=== PATIENT | female | born 1965 | race American Indian/Alaskan Native ===

== ENCOUNTER → 2024-08-24 | Outpatient (CLI) | payer OTHER, SELFPAY ==
--- NOTE | 2024-08-24 | XR_ITS ---
Examination: PA lateral chest 2 views TECHNIQUE: Upright PA lateral chest 2 views Exam date and time: August 24, 2024 1304 hours Comparison November 25, 2023 INDICATIONS: Coughing and epigastric pain this week, thyroidectomy in May FINDINGS: Normal heart size No pneumonia or pulmonary edema Again noted millimeters pulmonary nodule right upper lobe The osseous structures are intact IMPRESSION: 8mm pulmonary nodule right upper lobe, please see the CT chest report April 08, 2024
== END | disposition home or self-care (01) ==
PROVIDERS: PCP Nurse Practitioner Family; Referring Provider Nurse Practitioner Family; Visit Provider Nurse Practitioner Family
DX: R91.1 Solitary pulmonary nodule (principal); C73 Malignant neoplasm of thyroid gland
CPT/HCPCS: 71046

== ENCOUNTER 2024-10-04 08:13 | Outpatient (RCR) | payer OTHER, SELFPAY | END 2024-10-07 23:59 | disposition home or self-care (01) | LOC: SCTC 08:13 | PROVIDERS: PCP Nurse Practitioner Family; Referring Provider Nurse Practitioner Family; Visit Provider Radiology Therapeutic Radiology | DX: C73 Malignant neoplasm of thyroid gland (principal); E89.0 Postprocedural hypothyroidism; Z79.890 Hormone replacement therapy | CPT/HCPCS: 99213; G0463 ==

== ENCOUNTER 2024-12-01 10:08 | Outpatient (RCR) | payer OTHER, SELFPAY ==
--- NOTE | 2024-12-01 11:18 | CTCFLWUP_ITS ---
[facility] [address] [place], [place] [address] FOLLOW-UP NOTE Date: 12/01/2024 MR#: [id number] Name: ROBEL SULLIVAN : 1965 Dx: C73 Malignant neoplasm of thyroid gland Identification. Patient is here for follow-up. 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 Follicular adenomas within the right and left lobes nodule hyperplasia and parathyroid tissue present. Angioinvasion and lymphatic invasion not identified. Considering her age, of greater than 45, T stage between 1 to 4 cm this would be stage II clinically. Patient is being followed in [place] with director audience marketing and nuclear medicine expert was scheduled for both scan and therapeutic area iodine ablation. I will see her in 2 months with the results. Checking thyroid function tests along with markers and ultrasound will be following.. Electronically signed by: Prabhakar Hartman M.D. 12/01/2024 11:16 AM
== END 2024-12-05 23:59 | disposition home or self-care (01) ==
LOC: SCTC 10:08
PROVIDERS: PCP Nurse Practitioner Family; Referring Provider Nurse Practitioner Family; Visit Provider Radiology Therapeutic Radiology
DX: C73 Malignant neoplasm of thyroid gland (principal); E89.0 Postprocedural hypothyroidism
CPT/HCPCS: 99213; G0463

== ENCOUNTER → 2024-12-22 | Outpatient (CLI) | payer OTHER, SELFPAY ==
--- NOTE | 2024-12-22 | XR_ITS ---
Examination: Fingers, left hand third digit 3 views Technique: AP, oblique, lateral views left hand third digit 3 views. Exam date and time: December 22, 2024 1346 hours INDICATIONS: Worsening left hand middle finger distal pain 2 years FINDINGS: Prominent juxta-articular bone demineralization. Significant osteoarthritis distal interphalangeal joint third digit No fracture No erosive arthritis No opaque foreign body IMPRESSION: Significant osteoarthritis distal interphalangeal joint third digit, this joint is amenable to steroid injection under fluoroscopic guidance in the radiology department as clinically warranted
--- NOTE | 2024-12-22 | XR_ITS ---
Examination: Hand, left hand third digit 3 views Technique: Hand AP, oblique, lateral 3 views left third digit Date and time of exam: December 22, 2024 1346 hours INDICATIONS: Worsening third digit pain 2 years FINDINGS: Prominent juxta-articular bone demineralization Moderate osteoarthritis distal interphalangeal joints second through fifth digits No fracture or cortical bone destruction No opaque foreign body IMPRESSION: Osteoarthritis as above No fracture or dislocation
== END | disposition home or self-care (01) ==
PROVIDERS: Referring Provider Nurse Practitioner Family; Visit Provider Nurse Practitioner Family
DX: M19.042 Primary osteoarthritis, left hand (principal)
CPT/HCPCS: 73130; 73140

== ENCOUNTER 2025-02-02 10:08 | Outpatient (RCR) | payer OTHER, SELFPAY ==
--- NOTE | 2025-02-02 10:47 | CTCFLWUP_ITS ---
[facility] [address] [place], [place] [address] FOLLOW-UP NOTE Date: 02/02/2025 MR#: [id number] Name: ROBEL SULLIVAN : 1965 Dx: C73 Malignant neoplasm of thyroid gland Identification. Patient underwent total thyroidectomy 06/02/2020 for invasive papillary carcinoma follicular variant right thyroid 0.9 cm 1.4 cm left [place]. Angioinvasion and lymphatic invasion not identified. No lymph nodes submitted. Carcinoma was present in margin no extrathyroidal extension Pathologist staged pT1b which would be stage I Had radioactive iodine in [place] and was isolated for a week with total body iodine scan reportedly completed 2 days ago. Unfortunately we do not have the results. I have scheduled patient for 1 week follow-up when we get the results of the total body iodine scan done. Electronically signed by: Prabhakar Hartman M.D. 02/02/2025 10:45 AM
== END 2025-02-04 23:59 | disposition home or self-care (01) ==
LOC: SCTC 10:08
PROVIDERS: PCP Nurse Practitioner Family; Referring Provider Physician Assistant; Visit Provider Radiology Therapeutic Radiology
DX: C73 Malignant neoplasm of thyroid gland (principal); E89.0 Postprocedural hypothyroidism
CPT/HCPCS: 99213; G0463

== ENCOUNTER 2025-02-09 11:40 | Outpatient (RCR) | payer OTHER, SELFPAY ==
--- NOTE | 2025-02-09 12:15 | CTCFLWUP_ITS ---
[facility] [address] [place], [place] [address] FOLLOW-UP NOTE Date: 02/09/2025 MR#: [id number] Name: ROBEL SULLIVAN : 1965 Dx: C73 Malignant neoplasm of thyroid gland Patient underwent total thyroidectomy 06/02/2024 total thyroidectomy 06/02/2024. For invasive papillary carcinoma follicular variant within right and left lobes 0.9 and 1.4 cm in greatest dimension respectively. Inked margin within left lobe. There was no extrathyroidal extension. Surgery was performed by Dr. Osei in [place] pT1b no nodes submitted. Received 51 mCi radioactive iodine in [place] 01/19/2025 isolated for a week with told by the iodine scan showing only remnant thyroid tissue uptake. Environmental Services Project Manager in [place] adjusting her thyroid medications and currently patient is on 150 mcg of Synthroid. Assessment #1 stage I invasive papillary carcinoma follicular variant status post total thyroidectomy Dr. Josemanuel Lam. Assessment #2 51 mCi of radioactive iodine 01/19/2025 with total body iodine scan showing uptake only in the thyroid region. A#3. Environmental Services Project Manager managing her thyroid medications and patient currently on 150 mcg of Synthroid Assessment #4 thank you spoke to patient about getting ultrasound of the neck prior to next visit in 4 months along with tumor markers thyroglobulin and thyroglobulin antibody. Cc: [facility] Electronically signed by: Prabhakar Hartman M.D. 02/09/2025 12:13 PM
== END 2025-03-06 23:59 | disposition home or self-care (01) ==
LOC: SCTC 11:40
PROVIDERS: PCP Nurse Practitioner Family; Referring Provider Nurse Practitioner Family; Visit Provider Radiology Therapeutic Radiology
DX: C73 Malignant neoplasm of thyroid gland (principal); E89.0 Postprocedural hypothyroidism; Z92.3 Personal history of irradiation; Z79.890 Hormone replacement therapy
CPT/HCPCS: 99212; G0463

== ENCOUNTER → 2025-04-10 | Outpatient (CLI) | payer OTHER, SELFPAY ==
--- NOTE | 2025-04-10 15:30 | XR_ITS ---
Examination:Left hip AP, lateral, AP pelvis 3 views Technique: Hip AP lateral, AP pelvis, 3 views Exam date and time:April 10, 2025 1545 hours INDICATIONS: Left hip pain this month. FINDINGS: Mild narrowing right and left hip joints No left hip fracture or dislocation Right hip bones of the pelvis intact IMPRESSION: Mild bilateral hip osteoarthritis.
== END | disposition home or self-care (01) ==
PROVIDERS: PCP Nurse Practitioner Family; Referring Provider Nurse Practitioner Family; Visit Provider Nurse Practitioner Family
DX: M16.0 Bilateral primary osteoarthritis of hip (principal)
CPT/HCPCS: 73502

== ENCOUNTER → 2025-06-12 | Outpatient (CLI) | payer OTHER, SELFPAY ==
--- NOTE | 2025-06-12 | XR_ITS ---
Examination: Screening digital mammography, bilateral Computer aided detection 3-D breast Tomosynthesis, bilateral Date and time of exam: June 12, 2025, 1512 hours, comparison October 27, 2007 Indication: Screening Technique: Nonmagnified MLO, CC views of the breasts to been obtained, reconstructed from 3-D Tomosynthesis images. R2 computer aided detection program utilized for evaluation of suspicious masses and/or abnormal calcifications. 3-D Tomosynthesis images obtained. Findings: The breasts are heterogeneously dense, which may obscure small masses 12 mm nodule retroareolar region left breast indistinct margins Impression: BI-RADS Category 0: Incomplete: Need additional imaging evaluation Recommend follow-up spot tomographic views retroareolar region left breast as well as bilateral breast sonography to complete the workup.
--- NOTE | 2025-06-12 14:30 | XR_ITS ---
Examination: Ultrasound soft tissue thyroid TECHNIQUE: Grayscale sonographic images thyroid bed Date and time: June 12, 2025, 1548 hours INDICATIONS: Thyroid cancer diagnosis with thyroidectomy May 2024 FINDINGS: No soft tissue mass in the thyroid bed IMPRESSION: No soft tissue mass in the thyroid
== END | disposition home or self-care (01) ==
LOC: CDIM 14:29
PROVIDERS: PCP Radiology Therapeutic Radiology; Referring Provider Radiology Therapeutic Radiology; Visit Provider Radiology Therapeutic Radiology
DX: Z12.31 Encounter for screening mammogram for malignant neoplasm of breast (principal); R92.8 Other abnormal and inconclusive findings on diagnostic imaging of breast; C73 Malignant neoplasm of thyroid gland
CPT/HCPCS: 76536; 77063; 77067

== ENCOUNTER 2025-06-20 14:21 | Outpatient (RCR) | payer OTHER, SELFPAY ==
--- NOTE | 2025-06-20 15:06 | CTCFLWUP_ITS ---
[facility] [address], [place] [address] FOLLOW-UP NOTE Date: 06/20/2025 MR#: [id number] Name: ROBEL SULLIVAN : 1965 Dx: C73 Malignant neoplasm of thyroid gland Identification. 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 Inked margin within left lobe. There was no extrathyroidal extension. Surgery performed with Dr. Sky in [place]. pT1b no nodes submitted. Received 51 mCi of radioiodine [place] 01/19/2025 isolate for a week and total body iodine scan 01/24/2025 showing only remnant of thyroid tissue uptake. Chemistry Professor in [place] adjusting her thyroid medication and currently reportedly on 150 mcg of Synthroid. Labs including thyroid grossly reportedly unremarkable. Ultrasound showed no tissue mass in the thyroid 06/12/2025. Had a mammogram ordered by primary care provider 06/12/2025 12 mm nodule left breast with indistinct margins and left breast Spot tomogram as well as bilateral breast sonogram recommended. Examined patient today. There was no adenopathy or growth in the thyroid region. Lungs were clear. A#1. Stage I papillary follicular thyroid total thyroidectomy performed 06/02/2024. A#2. Radioiodine ablation 51 mCi with total body iodine scan 01/24/2025 showing only thyroid area uptake. A#3. Ultrasound 06/12/2025 unremarkable. A#4. Seeing retail office associate in [place] keeping her euthyroid at 150 mcg of Synthroid. Thyroglobulin reportedly unremarkable. Copy will be faxed to us A#5. Primary care provider ordered mammogram which requires further spot imaging. Informed patient of this. A#6. I will see patient again in 6 months time. Cc: [facility] Electronically signed by: Prabhakar Hartman M.D. 06/20/2025 3:04 PM
== END 2025-07-07 23:59 | disposition home or self-care (01) ==
LOC: SCTC 14:21
PROVIDERS: PCP Nurse Practitioner Family; Referring Provider Radiology Therapeutic Radiology; Visit Provider Radiology Therapeutic Radiology
DX: C73 Malignant neoplasm of thyroid gland (principal); E89.0 Postprocedural hypothyroidism; Z92.3 Personal history of irradiation; Z79.890 Hormone replacement therapy; N63.20 Unspecified lump in the left breast, unspecified quadrant
CPT/HCPCS: 99212; G0463

== ENCOUNTER → 2025-07-19 | Outpatient (CLI) | payer OTHER, SELFPAY ==
--- NOTE | 2025-07-19 09:14 | XR_ITS ---
Examination: Breast ultrasound, unilateral, left Date and time of exam: July 19, 2025, 0924 hours INDICATIONS: Mammogram June 12, 2000 2512 mm nodule retroareolar region left breast indistinct margins Technique: Real-time pena scale ultrasonographic imaging performed left breast including all 4 quadrants as well as nipple retroareolar and axillary region. Findings: Retroareolar 12:00 nodule angular margins 7 x 2 x 3 mm IMPRESSION: BI-RADS Category 3: Probably benign findings Recommend 1 additional 6-month left breast sonogram follow-up to document stability of retroareolar nodule described above
--- NOTE | 2025-07-19 10:00 | XR_ITS ---
Examination: Diagnostic digital mammography, unilateral, left Computer aided detection 3-D breast Tomosynthesis, unilateral Date and time of exam: July 19, 2025, 0933 hours INDICATIONS: Mammogram June 12, 2000 2512 mm nodule retroareolar region left breast indistinct margins Technique: Nonmagnified MLO, CC views of the left breast have been obtained, reconstructed from 3-D Tomosynthesis images. R2 computer aided detection program utilized for evaluation of suspicious masses and/or abnormal calcifications. 3-D Tomosynthesis images obtained. Findings: The breast is heterogeneously dense, which may obscure small masses Nodular density retroareolar is confirmed on the spot compression views, 10 mm also noted on the ultrasound study today Impression: BI-RADS category 3: Probably benign findings Recommend 1 additional 6-month left mammogram follow-up including spot compression views retroareolar
== END | disposition home or self-care (01) ==
LOC: CDIM 08:52
PROVIDERS: PCP Nurse Practitioner Family; Referring Provider Nurse Practitioner Family; Visit Provider Nurse Practitioner Family
DX: R92.332 Mammographic heterogeneous density, left breast (principal); N63.42 Unspecified lump in left breast, subareolar
CPT/HCPCS: 76641; 77061; 77065; G0279